=== PATIENT | male | born 1960 | race Caucasian/White ===

== ENCOUNTER 2021-12-13 12:26 | Emergency (ER) | payer OTHER ==
[~2021-12-13] VITALS: Ht 185.4 cm; Wt 75.0 kg
[2021-12-13 13:50] LABS: BASO # 0.1 x10^3/uL (0.0-0.2); BASO % 1 % (0-3); EOS # 0.2 x10^3/uL (0.0-0.7); EOS % 2 % (0-3); HEMATOCRIT 38.9 % (39.0-53.0); HEMOGLOBIN 13.2 g/dL (13.0-17.5); LYMPH # 2.3 x10^3/uL (1.0-4.8); LYMPH % 19 % (24-48); MEAN CORPUSCULAR HEMOGLOBIN 30 pg (25-35); MEAN CORPUSCULAR HGB CONC 34 g/dL (31-37); MEAN CORPUSCULAR VOLUME 88 fL (79-100); MONO # 0.9 x10^3/uL (0.0-1.1); MONO % 7 % (0-9); NEUT # 8.8 x10^3/uL (1.8-7.7); NEUT % 71 % (31-73); PLATELET COUNT 449 x10^3/uL (140-400); RED BLOOD COUNT 4.44 x10^6/uL (4.30-5.70); RED CELL DISTRIBUTION WIDTH 13.4 % (11.5-14.5); WHITE BLOOD COUNT 12.3 x10^3/uL (4.0-11.0)
[2021-12-13 13:56] LABS: CALCIUM 8.5 mg/dL (8.5-10.1); CREATININE 0.7 mg/dL (0.7-1.3); POTASSIUM 4.3 mmol/L (3.5-5.1)
[2021-12-13 14:02] LABS: ALBUMIN 2.6 g/dL (3.4-5.0); ALBUMIN/GLOBULIN RATIO 0.6 (1.0-1.7); TOTAL BILIRUBIN 0.5 mg/dL (0.2-1.0)
[2021-12-13 14:45] LABS: INFLUENZA A PATIENT NEGATIVE (NEGATIVE); INFLUENZA B PATIENT NEGATIVE (NEGATIVE)
--- NOTE | 2021-12-13 14:49 | RAD ---
EXAM: Chest, 2 views. HISTORY: Cough. COMPARISON: None. FINDINGS: 2 views of the chest are obtained. There is masslike consolidation involving the inferior l eft upper lobe. There is no pleural effusion or pneumothorax. The heart is normal in size. There is h yperinflation due to inspiratory effort or emphysema. IMPRESSION: Masslike consolidation involving the inferior left upper lobe. CT is recommended for jagdeep acterization. Electronically signed by: Lillie Singleton MD (12/13/2021 2:46 PM) [id number]
[2021-12-13] MEDS ORDERED: IOHEXOL 300 MG/ML 100ML VIAL. IV ONE (15:15)
--- NOTE | 2021-12-13 15:44 | RAD ---
EXAM: Chest CT with intravenous contrast. HISTORY: Masslike consolidation on radiographs. TECHNIQUE: Computed tomographic images of the chest were obtained following the administration of int ravenous contrast. Multiplanar reformatting was performed. *One or more of the following individualized dose reduction techniques were utilized for this examina tion: 1. Automated exposure control. 2. Adjustment of the mA and/or kV according to patient size. 3. Use of iterative reconstruction technique. COMPARISON: Radiographs obtained on the same date. FINDINGS: There is masslike consolidation of the inferior left upper lobe. There are a few air bronch ograms throughout this region and there is surrounding groundglass infiltrate. This extends to the le ft hilum and obscures the left hilar lymph nodes. There is a 1.7 cm suspected subpleural bleb within the left hilum related to moderate emphysema. There are nonspecific mediastinal lymph nodes. For refe rence purposes, there is a 9 mm left paratracheal lymph node and 1.4 cm aortopulmonary window lymph n ode. There is attenuation of the central left upper lobe bronchus. The heart is normal in size. There is an aberrant right subclavian artery, a normal variant. There is a 4 mm pleural-based nodular opacity within the posterior right upper lobe, likely due to pleural pa renchymal scarring. There is a trace left pleural effusion and basilar compressive atelectasis. There is left adrenal gland thickening without a discrete nodule. There is no acute finding involving the upper abdomen. There is no acute or suspicious osseous finding. There are degenerative changes involv ing the spine. IMPRESSION: 1. Masslike consolidation of the inferior left upper lobe and lingula with surrounding groundglass op acity and extension to the left hilum. This is associated with attenuation of the left upper lobe bro nchus and suspected hilar lymphadenopathy. Follow-up following treatment is recommended to exclude un derlying neoplasm. 2. Nonspecific mediastinal lymph nodes, likely reactive in etiology. 3. Emphysema. 4. 4 mm pleural-based nodular opacity within the posterior right upper lobe, likely due to pleural pa renchymal scarring. Attention at the time of follow-up is recommended. Electronically signed by: Lillie Singleton MD (12/13/2021 3:42 PM) [id number]
[2021-12-13 16:44] VITALS: BP 115/86
--- NOTE | 2021-12-13 17:04 | PHYS DOC ---
Past Medical History Past Surgical History: Other Additional Past Surgical Histo: hernia Smoking Status: Former Smoker Additional Information: quit 11/29/21 Alcohol Use: None General Adult EDM: Chief Complaint: CHEST PAIN HPI: HPI: Patient is a 61-year-old male who presents to the emergency department complaining of left-sided lateral chest pain with a nonproductive cough for the past week. Patient reports 2 weeks ago his granddaughter stayed at his home and was diagnosed with a lung infection. Patient denies fever or chills, denies chest congestion, denies diaphoretic episodes, dizziness, syncopal or near syncopal episodes. Patient denies nasal congestion. Patient denies nausea, vomiting, diarrhea. Patient reports he had a long history of cigarette smoking, but quit 2 weeks ago. Patient denies drinking alcohol or illicit drug use. Patient denies other physical complaints or physical concerns. Patient states he does not take prescription medications, does not have a primary care physician. Patient describes his pain as a sharp stabbing pain when he coughs, notices it only at night, denies any pain or discomfort throughout the day. Patient reports his pain does get up to about a 7 out of 10 at its worst. Denies alleviating or aggravating factors other than lying down to sleep. Review of Systems: Review of Systems: 14 body systems of review of systems have been reviewed. See HPI for pertinent positives and negative responses, otherwise all other systems are negative, nonpertinent or noncontributory. Constitutional: Negative except as outlined in HPI above. Skin: Negative except as outlined in HPI above. Eyes: Negative except as outlined in HPI above. HENT: Negative except as outlined in HPI above. Respiratory: Negative except as outlined in HPI above. Cardiovascular: Negative except as outlined in HPI above. GI: Negative except as outlined in HPI above. : Negative except as outlined in HPI above. Musculoskeletal: Negative except as outlined in HPI above. Integument: Negative except as outlined in HPI above. Neurologic: Negative except as outlined in HPI above. Endocrine: Negative except as outlined in HPI above. Lymphatic: Negative except as outlined in HPI above. Psychiatric: Negative except as outlined in HPI above. Heart Score: C/O Chest Pain: Yes HEART Score for Chest Pain: HEART Score for Chest Pain Response (Comments) Value History Slighlty/Non-Suspicious 0 ECG Normal 0 Age >45 - < 65 1 Risk Factors >3 Risk Factors or Hx CAD 2 Troponin < Normal Limit 0 Total 3 Risk Factors: Risk Factors: DM, Current or recent (<one month) smoker, HTN, HLP, family history of CAD, obesity. Risk Scores: Score 0 - 3: 2.5% MACE over next 6 weeks - Discharge Home Score 4 - 6: 20.3% MACE over next 6 weeks - Admit for Clinical Observation Score 7 - 10: 72.7% MACE over next 6 weeks - Early Invasive Strategies Current Medications: Current Medications Medications (Trade) Dose Ordered Sig/Fercho Start Time Stop Time Status Last Admin Dose Admin Iohexol (Omnipaque 300 Mg/ml) 75 ml 1X ONCE 12/13/21 15:15 12/13/21 15:16 DC 12/13/21 15:10 75 ML Allergies: Allergies: Allergies Coded Allergies Type Severity Reaction Last Updated Verified No Known Drug Allergies 12/13/21 No Physical Exam: PE: Constitutional: Well developed, well nourished, no acute distress, non-toxic appearance. 61-year-old male in no apparent distress. HENT: Normocephalic, atraumatic. Eyes: Conjunctiva normal, no discharge. Neck: Normal range of motion, no stridor. Cardiovascular: No cyanosis appreciated, distal cap refill less than 2 seconds. Heart sounds S1-S2 auscultation, regular rate and rhythm. Lungs & Thorax: Patient is in no respiratory distress, no audible adventitious lung sounds appreciated. No abnormal lung sounds appreciated per auscultation all lung mendoza, normal work of breathing, no accessory muscle use appreciated. Abdomen: Nontender, no abnormalities noted. Skin: Warm, dry, no erythema, no rash. Back: No tenderness, no deformities. Extremities: No tenderness, no cyanosis, no clubbing, ROM intact, no edema. Neurologic: Alert and oriented X 3, normal motor function, normal sensory function, no focal deficits noted. Psychologic: Affect normal, judgement normal, mood normal. Current Patient Data: Labs: Laboratory Tests Test 12/13/21 13:00 12/13/21 13:36 Influenza Type A Antigen Negative Influenza Type B Antigen Negative SARS-CoV-2 Antigen (Rapid) Negative White Blood Count 12.3 x10^3/uL Red Blood Count 4.44 x10^6/uL Hemoglobin 13.2 g/dL Hematocrit 38.9 % Mean Corpuscular Volume 88 fL Mean Corpuscular Hemoglobin 30 pg Mean Corpuscular Hemoglobin Concent 34 g/dL Red Cell Distribution Width 13.4 % Platelet Count 449 x10^3/uL Neutrophils (%) (Auto) 71 % Lymphocytes (%) (Auto) 19 % Monocytes (%) (Auto) 7 % Eosinophils (%) (Auto) 2 % Basophils (%) (Auto) 1 % Neutrophils # (Auto) 8.8 x10^3/uL Lymphocytes # (Auto) 2.3 x10^3/uL Monocytes # (Auto) 0.9 x10^3/uL Eosinophils # (Auto) 0.2 x10^3/uL Basophils # (Auto) 0.1 x10^3/uL Sodium Level 137 mmol/L Potassium Level 4.3 mmol/L Chloride Level 101 mmol/L Carbon Dioxide Level 27 mmol/L Anion Gap 9 Blood Urea Nitrogen 7 mg/dL Creatinine 0.7 mg/dL Estimated GFR (Cockcroft-Gault) 115.0 BUN/Creatinine Ratio 10 Glucose Level 99 mg/dL Calcium Level 8.5 mg/dL Total Bilirubin 0.5 mg/dL Aspartate Amino Transf (AST/SGOT) 63 U/L Alanine Aminotransferase (ALT/SGPT) 47 U/L Alkaline Phosphatase 225 U/L Troponin I High Sensitivity 6 ng/L Total Protein 7.0 g/dL Albumin 2.6 g/dL Albumin/Globulin Ratio 0.6 Lipase 44 U/L Current Medications Medications (Trade) Dose Ordered Sig/Fercho Route PRN Reason Start Time Stop Time Status Last Admin Dose Admin Iohexol (Omnipaque 300 Mg/ml) 75 ml 1X ONCE IV 12/13/21 15:15 12/13/21 15:16 DC 12/13/21 15:10 75 ML Laboratory Tests Test 12/13/21 13:00 12/13/21 13:36 Influenza Type A Antigen Negative (NEGATIVE) Influenza Type B Antigen Negative (NEGATIVE) SARS-CoV-2 Antigen (Rapid) Negative (NEGATIVE) White Blood Count 12.3 x10^3/uL (4.0-11.0) H Red Blood Count 4.44 x10^6/uL (4.30-5.70) Hemoglobin 13.2 g/dL (13.0-17.5) Hematocrit 38.9 % (39.0-53.0) L Mean Corpuscular Volume 88 fL (79-100) Mean Corpuscular Hemoglobin 30 pg (25-35) Mean Corpuscular Hemoglobin Concent 34 g/dL (31-37) Red Cell Distribution Width 13.4 % (11.5-14.5) Platelet Count 449 x10^3/uL (140-400) H Neutrophils (%) (Auto) 71 % (31-73) Lymphocytes (%) (Auto) 19 % (24-48) L Monocytes (%) (Auto) 7 % (0-9) Eosinophils (%) (Auto) 2 % (0-3) Basophils (%) (Auto) 1 % (0-3) Neutrophils # (Auto) 8.8 x10^3/uL (1.8-7.7) H Lymphocytes # (Auto) 2.3 x10^3/uL (1.0-4.8) Monocytes # (Auto) 0.9 x10^3/uL (0.0-1.1) Eosinophils # (Auto) 0.2 x10^3/uL (0.0-0.7) Basophils # (Auto) 0.1 x10^3/uL (0.0-0.2) Sodium Level 137 mmol/L (136-145) Potassium Level 4.3 mmol/L (3.5-5.1) Chloride Level 101 mmol/L (98-107) Carbon Dioxide Level 27 mmol/L (21-32) Anion Gap 9 (6-14) Blood Urea Nitrogen 7 mg/dL (8-26) L Creatinine 0.7 mg/dL (0.7-1.3) Estimated GFR (Cockcroft-Gault) 115.0 BUN/Creatinine Ratio 10 (6-20) Glucose Level 99 mg/dL (70-99) Calcium Level 8.5 mg/dL (8.5-10.1) Total Bilirubin 0.5 mg/dL (0.2-1.0) Aspartate Amino Transferase (AST) 63 U/L (15-37) H Alanine Aminotransferase (ALT) 47 U/L (16-63) Alkaline Phosphatase 225 U/L (46-116) H Troponin I High Sensitivity 6 ng/L (4-75) Total Protein 7.0 g/dL (6.4-8.2) Albumin 2.6 g/dL (3.4-5.0) L Albumin/Globulin Ratio 0.6 (1.0-1.7) L Lipase 44 U/L (73-393) L Laboratory Tests 12/13/21 13:36 Laboratory Tests 12/13/21 13:36 Vital Signs: Vital Signs Date Time Temp Pulse Resp B/P (MAP) Pulse Ox O2 Delivery O2 Flow Rate FiO2 12/13/21 15:44 74 16 109/67 (81) 98 Room Air 12/13/21 12:33 98.3 98.3 EKG: EKG: EKG performed at 1233 by ED nursing staff shows a normal sinus rhythm without other ectopy, heart rate 87 bpm, MO interval point 134, QT 0.466, no acute STEMI, no ACS, no acute ischemia appreciated, EKG interpreted by ED attending physician Dr. Barrett. Radiology/Procedures: Radiology/Procedures: REASON: Evaluate left upper lobe lung mass PROCEDURE: CT CHEST W/CONTRAST EXAM: Chest CT with intravenous contrast. HISTORY: Masslike consolidation on radiographs. TECHNIQUE: Computed tomographic images of the chest were obtained following the administration of intravenous contrast. Multiplanar reformatting was performed. *One or more of the following individualized dose reduction techniques were utilized for this examination: 1. Automated exposure control. 2. Adjustment of the mA and/or kV according to patient size. 3. Use of iterative reconstruction technique. COMPARISON: Radiographs obtained on the same date. FINDINGS: There is masslike consolidation of the inferior left upper lobe. There are a few air bronchograms throughout this region and there is surrounding groundglass infiltrate. This extends to the left hilum and obscures the left hilar lymph nodes. There is a 1.7 cm suspected subpleural bleb within the left hilum related to moderate emphysema. There are nonspecific mediastinal lymph nodes. For reference purposes, there is a 9 mm left paratracheal lymph node and 1.4 cm aortopulmonary window lymph node. There is attenuation of the central left upper lobe bronchus. The heart is normal in size. There is an aberrant right subclavian artery, a normal variant. There is a 4 mm pleural-based nodular opacity within the posterior right upper lobe, likely due to pleural parenchymal scarring. There is a trace left pleural effusion and basilar compressive atelectasis. There is left adrenal gland thickening without a discrete nodule. There is no acute finding involving the upper abdomen. There is no acute or suspicious osseous finding. There are degenerative changes involving the spine. IMPRESSION: 1. Masslike consolidation of the inferior left upper lobe and lingula with ltarice rounding groundglass opacity and extension to the left hilum. This is associated with attenuation of the left upper lobe bronchus and suspected hilar lymphadenopathy. Follow-up following treatment is recommended to exclude underlying neoplasm. 2. Nonspecific mediastinal lymph nodes, likely reactive in etiology. 3. Emphysema. 4. 4 mm pleural-based nodular opacity within the posterior right upper lobe, likely due to pleural parenchymal scarring. Attention at the time of follow-up is recommended. Electronically signed by: Lillie Singleton MD (12/13/2021 3:42 PM) [id number] REASON: Cough, left lateral chest pain with cough PROCEDURE: CHEST PA & LATERAL EXAM: Chest, 2 views. HISTORY: Cough. COMPARISON: None. FINDINGS: 2 views of the chest are obtained. There is masslike consolidation involving the inferior left upper lobe. There is no pleural effusion or pneumothorax. The heart is normal in size. There is hyperinflation due to inspiratory effort or emphysema. IMPRESSION: Masslike consolidation involving the inferior left upper lobe. CT is recommended for characterization. Electronically signed by: Lillie Singleton MD (12/13/2021 2:46 PM) [id number] Course & Med Decision Making: Course & Med Decision Making Pertinent Labs and Imaging studies reviewed. (See chart for details) 61-year-old male, vital signs reviewed, presents to the emergency department concerning chest pain with cough at night. Physical examination is unremarkable, patient is a cigarette smoker that recently quit, will order chest x-ray, EKG, CBC, CMP, troponin. Patient's chest x-ray concerning for mass in the left upper lobe, will order recommended CT chest with contrast. Patient's labs are unremarkable, patient is EKG is unremarkable. The patient's HEART score equals 3. CT chest with contrast concerning for left upper lobe mass, recommended further follow-up to rule out neoplasm, discussed findings with patient, recommended p atient see percussion teacher, will give recommendation for primary care providers to establish health care follow-up, patient gave verbal understanding of and is amenable to ED discharge planning. Discussed with the patient all findings and diagnostic testing as well as the need to follow-up with their primary care provider for further evaluation and treatment or return to the ED if any new or worsening symptoms. Strict return precautions were also discussed at length, the patient voiced understanding and agreement with the discharge planning. The patient was nontoxic in appearance, in no apparent distress, and hemodynamically stable at the time of disposition. Dragon Disclaimer: Dragon Disclaimer: This electronic medical record was generated, in whole or in part, using a voice recognition dictation system. Departure Departure Impression: Primary Impression: Chest pain Qualified Codes: R07.9 - Chest pain, unspecified Additional Impression: Abnormal chest CT Disposition: HOME / SELF CARE / HOMELESS Condition: GOOD Referrals: CHEYANNE PARIKH MD Patient Instructions: Chest Pain (Nonspecific) Additional Instructions: You were seen today in the emergency department for chest pain with cough. A EKG was performed today that did not show any concerning findings, your lab work did not show concerning findings of heart disease. As we discussed, I did disclose that there was an abnormal finding on your chest x-ray and your chest CT specifically of the left lung lobe. There is a mass that requires further follow-up as we discussed. I have given information for a nerve specialist Dr. Parikh, please call today or tomorrow for the earliest appointment for further evaluation. You had indicated you do not have a primary care physician, I have attached a list of area healthcare providers and clinics for you to establish primary care with. Please call today or tomorrow for an appointment to be seen soon. Thank you for visiting our Emergency Department. It was a pleasure taking care of you today in the emergency department and we appreciate you trusting us with your care. If any additional problems come up don't hesitate to return to visit us. Please follow up with your primary care provider so they can plan additional care if needed and know about the problem that you had. If symptoms worsen come back to the Emergency Department. Any concerning symptoms that start such as chest pain, shortness of air, weakness or numbness on one side of the body, running high fevers or any other concerning symptoms return to the ER. [facility] [address] [place] [address] [facility] [address] [place] [address] [address] [place] [address] [facility] [address] [place] [address] [facility] [address] [place] [address] [facility] [address] [place] [address] [facility] [address] [place] [address] [facility] [address] [place] [address] [facility] [address] [place] [address] [facility] [address] [place] [address] ANGEL LUIS DOS SANTOS APRN December 13, 2021 17:04
--- NOTE | 2021-12-13 19:53 | EKG ---
[facility] [address] [place] [address] Test Date: 2021-12-13 Test Time: 12:33:35 Pat Name: SYED ROONEY Department: Room: Gender: M Ambulatory Service Representative: : 1960 Requested By: ANGEL LUIS DOS SANTOS Order Number: [id number] Reading MD: Xander Macdonald Measurements Intervals [place] Rate: 87 P: 60 HI: 134 QRS: 51 QRSD: 92 T: 41 QT: 382 QTc: 466 Interpretive Statements SINUS RHYTHM INCOMPLETE RIGHT BUNDLE BRANCH BLOCK Electronically Signed On 12-15-2021 14:52:04 CDT by Xander Macdonald
== END 2021-12-13 17:24 | disposition home or self-care (01) ==
LOC: ER 12:26
DX: R07.89 Other chest pain (principal); Z20.822 Contact with and (suspected) exposure to COVID-19; R05.9 Cough, unspecified; R91.8 Other nonspecific abnormal finding of lung field; Z87.891 Personal history of nicotine dependence
CPT/HCPCS: 36415; 71046; 71260; 80053; 83690; 84484; 85025; 87428; 93005; 99284; Q9967